=== PATIENT | female | born 1970 | race American Indian/Alaskan Native ===

== ENCOUNTER 2016-11-05 09:04 | Inpatient (IN) | payer OTHER ==
--- NOTE | 2016-11-04 09:39 | Anesthesia Consultation ---
Anesthesia Consult and Med Hx Date of service: 11/05/16 - Airway Anesthetic Teeth Evaluation: Good ROM Head & Neck: Adequate Mental/Hyoid Distance: Adequate Mallampati Class: Class II Intubation Access Assessment: Probably Good - Pre-Operative Health Status ASA Pre-Surgery Classification: ASA2 Proposed Anesthetic Plan: General - Pulmonary Hx Asthma: No COPD: No Hx Pneumonia: No - Cardiovascular System Hx Hypertension: Yes (x 10 yrs) - Central Nervous System Hx Psychiatric Problems: No - Gastrointestinal Hx Gastroesophageal Reflux Disease: Yes - Endocrine Hx End Stage Renal Disease: No - Hematic Hx Anemia: Yes - Other Systems Hx Cancer: No
[2016-11-04 10:47] LABS: Hematocrit 26.3 % (30.3-42.9); Hemoglobin 8.2 gm/dl (10.1-14.3); Mean Corpuscular HGB Conc 31 % (30-34); Mean Corpuscular Volume 75 fl (79-97); Platelet Count 405 K/mm3 (140-440); White Blood Count 7.9 K/mm3 (4.5-11.0)
[2016-11-04 10:52] LABS: Mean Corpuscular Hemoglobin 23 pg (28-32); Red Cell Distribution Width 23.7 % (13.2-15.2)
[2016-11-04 10:57] LABS: Anion Gap 17 mmol/L; BUN/Creatinine Ratio 7.77; Blood Urea Nitrogen 7 mg/dL (7-17); Calcium 9.1 mg/dL (8.4-10.2); Carbon Dioxide 26 mmol/L (22-30); Chloride 98.5 mmol/L (98-107); Glucose 114 mg/dL (65-100); Potassium 3.3 mmol/L (3.6-5.0); Sodium 138 mmol/L (137-145)
[2016-11-04 11:16] LABS: Basophils % (Manual) 0 % (0.0-1.8); Blastocytes % (Manual) 0 %
[2016-11-04 11:17] LABS: Diff Status Complete; Elliptocytes Few; Ovalocytes 1+
--- NOTE | 2016-11-04 17:06 | History and Physical Report ---
History of Present Illness Date of examination: 11/04/16 Date of admission: 11/05/2016 Chief complaint: symptomatic uterine fibroids History of present illness: 46y/o with mutiple uterine fibroids that has caused enlargement of the uterus. The patient is experiencing painful heavy menses. She desires to have definitive surgery. Past History Past Medical History: hypertension, kidney stones, other (anxiety; fibroids) Social history: - Obstetrical History : 4 Para: 3 Hx # Term Pregnancies: 3 Number of Pregnancies: 0 Spontaneous Abortions: 0 Induced : 1 Number of Living Children: 3 Medications and Allergies Allergies Allergy/AdvReac Type Severity Reaction Status Date / Time codeine Allergy Rash Verified 11/04/16 09:43 Home Medications Medication Instructions Recorded Confirmed Last Taken Type amLODIPine [Norvasc] 10 mg PO DAILY 04/16/15 10/31/16 04/16/15 History Hydrochlorothiazide [HCTZ] 25 mg PO QDAY 10/31/16 10/31/16 Unknown History RX: Labetalol [Normodyne TAB] 300 mg PO BID 10/31/16 10/31/16 Unknown History Active Meds: Active Medications Famotidine (Pepcid) 20 mg PO PREOP NR Stop: 11/05/16 23:59 Lactated Ringer's (Lactated Ringers) 1,000 mls @ 100 mls/hr IV DIRECT CHUCK Midazolam HCl (Versed) 2 mg IV PREOP NR Stop: 11/05/16 23:59 Review of Systems All systems: negative Constitutional: fatigue, malaise, lethargy Genitourinary: vaginal bleeding, pelvic pain - Vital Signs Vital signs: Vital Signs Temp Pulse Resp BP 97.9 F 64 14 144/88 11/04/16 12:08 11/04/16 12:08 11/04/16 12:08 11/04/16 12:08 Temp Pulse Resp BP Pulse Ox 97.9 F 64 14 144/88 11/04/16 12:08 11/04/16 12:08 11/04/16 12:08 11/04/16 12:08 - Physical Exam Breasts: Positive: deferred Cardiovascular: Regular rate Lungs: Positive: Clear to auscultation Abdomen: Positive: other (pelvic mass) Uterus: Positive: enlarged Results Result Diagrams: 11/04/16 09:25 03/14/17 09:25 Abnormal lab results 11/04/16 11/04/16 Range/Units 09:25 09:25 RBC 3.50 L (3.65-5.03) M/mm3 Hgb 8.2 L (10.1-14.3) gm/dl Hct 26.3 L (30.3-42.9) % MCV 75 L (79-97) fl MCH 23 L (28-32) pg RDW 23.7 H (13.2-15.2) % Seg Neuts % (Manual) 88.0 H (40.0-70.0) % Lymphocytes % (Manual) 7.0 L (13.4-35.0) % Lymphocytes # (Manual) 0.6 L (1.2-5.4) K/mm3 Potassium 3.3 L (3.6-5.0) mmol/L Glucose 114 H (65-100) mg/dL All other labs normal. Assessment and Plan - Patient Problems (1) Leiomyoma Status: Acute Plan to address problem: scheduled for LEYDI/BSO (2) Menorrhagia Status: Acute Qualifiers: Menorrahagia type: M (3) Dysmenorrhea Status: Acute (4) Anemia Status: Acute Qualifiers: Anemia type: A Iron deficiency anemia type: I Vitamin B12 deficiency anemia type: V Folate deficiency anemia type: F Bone marrow failure anemia type: B Hemolytic anemia type: H Other causes of anemia: O
[~2016-11-05 09:04] MED LIST: ACD-A IV ONE; ANCEF/STERILE WATER 2 GM/20 ML 2 GM/20 ML SYRINGE IV SCH; LACTATED RINGERS 1,000 ML IV SCH; NACL 0.9% 500 ML 500 ML IV SCH; PEPCID PO NR; VERSED IV NR
[2016-11-05] MEDS ORDERED: NACL 0.9% 1000 ML 1,000 ML IV SCH (10:00)
[2016-11-05] MEDS ORDERED: NEURONTIN PO NR (10:42)
[2016-11-05] MEDS ORDERED: SUBLIMAZE IV NR (10:43)
[2016-11-05] MEDS ORDERED: MARCAINE-EPI 0.5%-1:200,000 INFILTRATI NR (10:44)
[2016-11-05] MEDS ORDERED: DECADRON IV NR (10:44)
--- NOTE | 2016-11-05 11:52 | Admit Criteria Form ---
Admission Criteria Documentation: AMBULATORY SURGERY EXCEPTION CRITERIA Ambulatory Surgery Exception Criteria ( Place 'X' for any and all applicable criteria): Surgery or procedure performed on ambulatory basis may require inpatient stay for[A] ANY ONE of the following(1)(2)(3)(4)(5)(6)(7)(8)(9): [X] I. A preoperative situation, condition, or finding that warrants inpatient stay as indicated by ANY ONE of the following: [X] a) Inpatient care needed because of severity of a disease or condition rather than the surgery (eg, severe cardiac or respiratory disease, severe infection) (15) (16 ) (17) (18) [] b) Emergent procedure (eg, angioplasty for acute ischemia)(19) [] c) Complex surgical approach or situation as indicated by ANY ONE of the following(3): [] i) Open approach needed instead of usual endoscopic, transcatheter, or other less invasive procedure [] ii) Difficult approach because of previous operation [] iii) Airway monitoring required after open neck procedures(20)(21) [] iv) Large mass requiring unusually extensive dissection [] v) Additional complicating feature requiring inpatient care (eg, drain management)(22(23): [] d) Major surgery in a pt with high anesthetic risk as indicated by ANY ONE of the following (2)(3)(5)(7)(8): [] i) ASA risk class III or higher (severe systemic disease impairing function) [D] [] ii) Advanced age (eg, older than 85 years)(14)(24) [] iii) Symptomatic heart failure(25) [] iv) Symptomatic asthma or COPD(8)(21) [] v) Morbid obesity with hemodynamic or respiratory problems(20)( 21)(26)(27) [] vi) Obstructive sleep apnea(20)(21) [] vii) Former premature infants who are younger than 60 weeks [] viii) High risk for severe postoperative abnormalities (eg, severe postoperative hypocalcemia after parathyroidectomy for severe hyperparathyroidism)(27)( 28) [] ix) Unstable angina(25) [] e) Drug-related risk requiring inpatient stay as indicated by ANY ONE of the following(5)(10)(14)(32)(33) [] i) Procedure requires discontinuing drugs or other therapy (eg , antiarrhythmic medication, antiseizure medication), which necessitates inpatient observation or treatment.(18)(31) [] ii) Major surgery and high risk drug use as indicated by ANY ONE of the following: [] 1) Active abuse of cocaine or similar drug [] 2) Monoamine oxidase inhibitor use [] 3) Other drug identified as posing risk [] f) Inadequate outpatient care situation as indicated by ANY ONE of the following(5)(10)(14)(32)(33) [] i) Patient lives remote from medical facility and procedure has urgent complication potential, and temporary nearby residence cannot be arranged [] ii) Patient will have postprocedure incapacitation and inadequate assistance at home, or alternative level of care cannot be arranged. [] iii) Patient will have long general anesthesia or procedure side effect resolution time, and competent person to stay with patient on first postoperative night at home or alternative level of care cannot be arranged. []iv) Other inadequate outpatient situation that cannot be handled by other means [] II. A perioperative event, condition, or finding that warrants inpatient stay as indicated by ANY ONE of the following (1)(2)(3): [] a) Inadequate physiologic recovery: cardiovascular, respiratory, or hemodynamic status not normal or near preoperative baseline(18) [] b) Hemodynamic instability [] c) Patient not alert with near normal or baseline mental status [] d) Temperature not normal or as expected and not appropriate for outpatient treatment of condition [] e) Ambulatory or appropriate activity level status not yet achieved post procedure [E](34)(35)(36) [] f) Operative site not appropriate (eg, unexpected or excessive drainage or bleeding) [] g) Postoperative effects not resolved or adequately managed (eg, significant pain or vomiting not appropriate for outpatient or next level of care)(10)(12) [] h) Complicating features requiring inpatient care as indicated by ANY ONE of the following(37): [] i) Severe complications of procedure (eg, bowel injury, airway compromise, vascular injury,severe hemorrhage) [] ii) Extensive (eg, dissection far beyond usual scope of procedure ) or prolonged (eg, 120 minutes beyond usual) surgery needed requiring inpatient postoperative care [] iii) Conversion to an open or complex procedure that requires inpatient care (eg, open vs laparoscopic cholecystectomy, abdominal vs vaginal hysterectomy)(38) [] iv) Comorbid condition or test result identified during or post procedure that requires inpatient care (7) [] v) Malignant hyperthermia(30) [] vi) Other complicating feature requiring inpatient care(22)(23) Inpatient stay may be needed until ALL of the following are present (1)(2)(3)(4) (5)(6)(10)(14)(33)(40): []a) Physiologic recovery: cardiovascular, respiratory, and hemodynamic status normal or near preoperative baseline []b) Hemodynamic stability []c) Patient alert, with near normal or baseline mental status []d) Temperature appropriate: patient afebrile or temperature appropriate for outpt treatment of condition []e) Activity level appropriate: ambulatory or appropriate activity level post procedure []f) Operative site appropriate as indicated by ALL of the following: []i) Site dry or with expected drainage []ii) Any blood noted is as expected for procedure. []g) Postoperative effects resolved or managed as indicated by ALL of the following: []i) Pain management appropriate for outpatient (or next level of) care(10) []ii) Minimal nausea and vomiting: if present, successfully treated with oral medication(12) []iii) Headache, dizziness, or drowsiness (if present) are mild. []h) Voiding status acceptable as indicated by ANY ONE of the following: []i) Voiding spontaneously []ii) No voiding but instructions given for follow-up in 6 to 8 hours []iii) Urinary catheter in place, and instructions given for follow-up []i) Complicating features requiring inpatient care manageable at a lower level of care(37) []j) Comorbid conditions manageable at a lower level of care(37) The original [employer] content created by [employer] has been revised. The portions of the content which have been revised are identified through the use of italic text or in bold, and [employer] has neither reviewed nor approved the modified material. All other unmodified content is copyright [employer]. Please see references footnoted in the original [employer] edition 2016 Admission Criteria Met: Yes
--- NOTE | 2016-11-05 12:00 | Anesthesia Consultation ---
Anesthesia Consult and Med Hx - Airway Anesthetic Teeth Evaluation: Good ROM Head & Neck: Adequate Mental/Hyoid Distance: Adequate Mallampati Class: Class II Intubation Access Assessment: Probably Good - Pulmonary Exam CTA: Yes - Cardiac Exam Cardiac Exam: RRR - Pre-Operative Health Status ASA Pre-Surgery Classification: ASA3 Proposed Anesthetic Plan: General - Pulmonary Hx Smoking: No Hx Asthma: No COPD: No Hx Pneumonia: No - Cardiovascular System Hx Hypertension: Yes (x 10 yrs) - Central Nervous System Hx Psychiatric Problems: No - Gastrointestinal Hx Gastroesophageal Reflux Disease: Yes - Endocrine Hx End Stage Renal Disease: No - Hematic Hx Anemia: Yes (hct 26 receiving first PRBC in preop) - Other Systems Hx Cancer: No
--- NOTE | 2016-11-05 12:01 | Anesthesia Day of Surgery ---
Anesthesia Day of Surgery - Day of Surgery Patient Examined: Yes Patient H&P Reviewed: Yes Patient is NPO: Yes Beta Blockers: Yes Cardiac Clearance: No Pulmonary Clearance: No
[2016-11-05] MEDS ORDERED: SUBLIMAZE ONE (12:39)
[2016-11-05] MEDS ORDERED: DIPRIVAN 10 MG/ML IV ONE (12:40)
[2016-11-05] MEDS ORDERED: ZEMURON IV ONE (12:41)
[2016-11-05] MEDS ORDERED: XYLOCAINE MPF 2% ONE (12:43)
[2016-11-05] MEDS ORDERED: CLONIDINE 1,000 MCG/10 ML VIAL EP ONE (12:49)
[2016-11-05] MEDS ORDERED: NACL 0.9% IR ONE (13:01)
[2016-11-05] MEDS ORDERED: NACL 0.9% 1000 ML ONE (13:10)
[2016-11-05] MEDS ORDERED: ROBINUL ONE ×2 (13:10→14:33)
--- NOTE | 2016-11-05 13:13 | Post Anesthesia Evaluation ---
- Post Anesthesia Evaluation Airway Patent: Yes Stable Respiratory Function: Yes Temp > 96.8F: Yes Pain Manageable: Yes Adequeate Hydration: Yes
[2016-11-05] MEDS ORDERED: ZOFRAN ONE (13:58)
[2016-11-05] MEDS ORDERED: DECADRON ONE (13:58)
[2016-11-05] MEDS ORDERED: DILAUDID ONE (14:25)
[2016-11-05] MEDS ORDERED: NACL 0.9% 1000 ML 1,000 ML ONE (14:32)
[2016-11-05] MEDS ORDERED: NEOSTIGMINE ONE (14:34)
[2016-11-05] MEDS ORDERED: TORADOL ONE (14:35)
--- NOTE | 2016-11-05 14:55 | Operative Report ---
Operative Report Operative Report: Date of procedure: 11/05/2016 Pre-operative diagnosis: Symptomatic uterine fibroids; dysfunctional uterine bleeding; dysmenorrhea Post-operative diagnosis: Same as above Procedure name(s):. Total Abdominal hysterectomy and bilateral salpingo- oophorectomy Surgeon: Valery Weber M.D. Vegetable Packer: Leah Mcmahon MD Anesthesia: Gen. endotracheal anesthesia Findings Enlarged fibroid uterus with multiple leiomyomas Estimated blood loss: 200ml Pathology: Uterus, cervix, tubes, ovaries, and the leiomyomas Indication: 46-year-old 013 with symptomatic uterine ports. The patient elected to undergo definitive surgical management. Procedure The patient was taken to the operating room and given general endotracheal anesthesia without complication. The patient was prepped and draped in a normal sterile fashion. A penicillin skin incision was made down to layer of the fascia which was nicked in the midline and extended laterally with the Bovie cautery. Superior aspect of the rectus fascia was grasped with Tamy clamps 2 and the rectus muscles sharply. This was done in inferior fashion as well. The rectus muscle in the midline and the peritoneum entered bluntly. Survey of the patient's pelvis revealed evidence of an enlarged uterus with multiple fibroids. Uterus was elevated through the surgical incision out of the pelvis. The round ligament was ligated and transected with the LigaSure device. The infundibulopelvic ligaments were isolated and clamped 2 with Michael clamps transected and suture ligated with 0 Vicryl. A fundal myoma had to be excised in order to improve mobilization of the uterus. Once access to the uterine vessels was obtained, the uterine vessels were clamped 2 with a Michael clamp transected and suture ligated. In a sequential fashion along the broad ligament the ligament was clamped transected and suture ligated. Once the blood supply to the uterus was adequately contained the corpus of the uterus was amputated from the cervix. Retaining retractor was placed with warm moist laparotomy sponges. The cervical stump was grasped with a single-tooth tenaculum and elevated. The vesicouterine peritoneal was then dissected off of the lower uterine segment. This performed by sharp and blunt dissection. A straight Michael clamp was used in order to isolate the cervix on the surrounding tissue. The cervix was secured a Zeppelin clamp was placed below the level of the cervix and the cervix was amputated from the vaginal cuff. The vaginal cuff was then closed with Mar fixation stitch and [id number] stitches in the midline. Irrigation of the pelvis was performed. Tisseel was applied to the surgical sites. There is no evidence of any active bleeding at the conclusion of the case. The self-retaining retractor was removed along with the laparotomy sponges. The peritoneum was then closed in a running fashion with 0 Vicryl. The fascia was then closed in a running fashion with 0 Vicryl. The subcutaneous adipose tissue was reapproximated midline with 0 Vicryl. The skin was reapproximated with 3-0 Monocryl on a Seth in a subcuticular fashion. Steri-Strips placed across the incision. A pressure dressing was applied to the incision. All sponge laps and needle counts were correct 2. The patient was then successfully extubated and taken to the recovery room in stable condition.
[2016-11-05] MEDS ORDERED: NARCAN 0.4 MG/1 ML IV PRN (14:57)
[2016-11-05] MEDS ORDERED: ZOFRAN IV PRN (14:59)
[2016-11-05] MEDS ORDERED: TYLENOL PO PRN (14:59)
[2016-11-05] MEDS ORDERED: MORPHINE PCA 30MG/30ML IV SCH (15:00)
--- NOTE | 2016-11-05 15:37 | Post Anesthesia Evaluation ---
- Post Anesthesia Evaluation Patient Participated: Yes Airway Patent: Yes Stable Respiratory Function: Yes Nausea/Vomiting: No Temp > 96.8F: Yes Pain Manageable: Yes Adequeate Hydration: Yes Anesthesia Complications: No Block Receding Appropriately: Not Applicable Patient on Ventilator: No
[2016-11-05] MEDS: TORADOL IV SCH ×2 (18:06→23:49)
[2016-11-05] MEDS: PERCOCET 5/325 PO PRN (20:13)
[2016-11-05] MEDS: D5LR 1,000 ML IV SCH (23:55)
[2016-11-06 06:27] LABS: Hematocrit 30.1 % (30.3-42.9); Hemoglobin 9.5 gm/dl (10.1-14.3)
[2016-11-06] MEDS: TORADOL IV SCH (06:52)
[2016-11-06] MEDS: D5LR 1,000 ML IV SCH (06:53)
--- NOTE | 2016-11-06 08:45 | Progress Note ---
Assessment and Plan - Patient Problems (1) Leiomyoma Current Visit: Yes Status: Acute Plan to address problem: Patient doing well postoperatively Routine postoperative care (2) Menorrhagia Current Visit: Yes Status: Acute Qualifiers: Menorrahagia type: M (3) Dysmenorrhea Current Visit: Yes Status: Acute (4) Anemia Current Visit: Yes Status: Acute Qualifiers: Anemia type: A Iron deficiency anemia type: I Vitamin B12 deficiency anemia type: V Folate deficiency anemia type: F Bone marrow failure anemia type: B Hemolytic anemia type: H Other causes of anemia: O Subjective - Subjective Date of service: 11/06/16 Interval history: The patient is without any significant complaints. She is tolerating clear diet without complication. She is currently sitting up in the bed and has ambulated in the room. Patient reports: appetite normal, pain well controlled Objective - Vital Signs Latest vital signs: Vital Signs Temp Pulse Pulse Resp BP BP Pulse Ox 11/06/16 05:13 20 11/06/16 04:00 98.6 F 82 16 122/80 11/06/16 00:00 98.6 F 77 22 122/68 11/05/16 23:56 20 11/05/16 19:30 98.6 F 70 16 136/82 11/05/16 16:30 98.8 F 63 16 110/71 96 11/05/16 16:19 97.5 F L 65 18 120/76 11/05/16 16:15 63 17 109/71 99 11/05/16 16:00 61 19 114/71 99 11/05/16 15:45 60 18 108/69 99 11/05/16 15:30 63 19 114/69 98 11/05/16 15:20 59 L 17 108/65 100 11/05/16 15:12 59 L 16 104/57 100 11/05/16 15:07 61 16 103/63 100 11/05/16 15:02 97.8 F 58 L 15 101/67 100 11/05/16 13:05 69 12 124/80 100 11/05/16 13:00 68 16 126/82 100 11/05/16 12:55 69 16 119/73 100 11/05/16 12:50 67 15 114/70 100 11/05/16 12:45 67 11 L 131/79 100 11/05/16 12:10 99.2 F 62 18 135/78 100 11/05/16 12:00 99.5 F 66 18 135/78 100 11/05/16 11:45 98.4 F 67 18 112/69 100 11/05/16 10:47 98.1 F 67 18 127/72 100 11/05/16 09:39 98.1 F 67 18 127/72 100 Intake and Output 11/05/16 11/06/16 11/06/16 22:59 06:59 14:59 Intake Total 1300 Output Total 780 1800 Balance -780 -500 Intake: IV 1000 D5lr 1,000 ml @ 125 mls/ 1000 hr IV DIRECT CHUCK Rx#: [id number] Oral 300 Output: Urine 780 1800 Indwelling Catheter 600 1800 Uretheral (Bernal) 180 Other: Total, Intake Amount 300 Total, Output Amount 600 1200 Voiding Method Indwelling Catheter - Exam Abdomen: Present: normal appearance, soft Incision: Present: dressed - Labs Labs: Abnormal lab results 11/05/16 11/06/16 Range/Units 10:00 05:30 Hgb 9.5 L (10.1-14.3) gm/dl Hct 30.1 L (30.3-42.9) % Crossmatch See Detail
--- NOTE | 2016-11-06 10:13 | Progress Note ---
Subjective Date of service: 11/06/16 Interval history: 1st POD after hysterectomy Patient is in the bed, comfortable. Pain is well controlled with pain meds. Ambulated. No nausea or vomiting. No anesthesia complications Objective - Constitutional Vitals: Vital Signs - 12hr 11/05/16 11/06/16 11/06/16 23:56 00:00 04:00 Temperature 98.6 F 98.6 F Pulse Rate [ Left Radial] Pulse Rate [ 77 82 Right From Monitor] Respiratory 20 22 16 Rate Blood Pressure [Left Arm] Blood Pressure 122/68 122/80 [Right Arm] 11/06/16 11/06/16 11/06/16 05:13 07:36 08:30 Temperature 98.3 F Pulse Rate [ 76 Left Radial] Pulse Rate [ Right From Monitor] Respiratory 20 18 18 Rate Blood Pressure 132/70 [Left Arm] Blood Pressure [Right Arm] - Labs CBC & Chem 7: 11/06/16 05:30 11/04/16 09:25 Labs: Abnormal lab results 11/05/16 11/06/16 Range/Units 10:00 05:30 Hgb 9.5 L (10.1-14.3) gm/dl Hct 30.1 L (30.3-42.9) % Crossmatch See Detail
[2016-11-06] MEDS: PERCOCET 5/325 PO PRN ×3 (10:37→22:00)
[2016-11-06] MEDS: MILK OF MAGNESIA PO PRN (15:43)
[2016-11-07] MEDS: PERCOCET 5/325 PO PRN ×2 (06:10→10:15)
[2016-11-07] MEDS: MILK OF MAGNESIA PO PRN (06:10)
[2016-11-07] MEDS ORDERED: DULCOLAX PR PRN (09:45)
--- NOTE | 2016-11-07 14:09 | Progress Note ---
Assessment and Plan A/P POD#2 s/p abdominal hysterectomy -doing well -tolerating diet -pain well controlled -had a bowel movement -patient met d/c criteria will f/u in 2 weeks for incision check Subjective - Subjective Date of service: 11/07/16 Principal diagnosis: s/p abdominal hysterectomy Patient reports: appetite normal, voiding normally, pain well controlled, flatus , bowel movement, ambulating normally Objective - Vital Signs Latest vital signs: Vital Signs Temp Pulse Pulse Resp BP 11/07/16 11:42 97.3 F L 67 18 174/99 11/07/16 08:53 98.5 F 69 15 151/86 11/07/16 06:10 18 11/07/16 01:00 98.6 F 67 20 143/87 11/06/16 23:00 18 11/06/16 22:00 18 11/06/16 20:15 98.4 F 72 22 137/76 11/06/16 19:45 18 11/06/16 16:20 97.7 F 80 20 138/82 Intake and Output 11/06/16 11/07/16 11/07/16 22:59 06:59 14:59 Intake Total 480 360 Output Total 200 Balance 480 160 Intake: Oral 240 360 Intake, Free Water 240 Output: Urine 200 Void 200 Other: Total, Intake Amount 240 360 Total, Output Amount 200 Voiding Method Toilet Toilet # Voids 360 Void 1 1 - Exam Breasts: Present: deferred Cardiovascular: Present: Regular rate, Normal S1, Normal S2 Lungs: Present: Clear to auscultation, Normal air movement Abdomen: Present: normal appearance, soft, normal bowel sounds. Absent: distention Vulva: both: normal Extremities: Present: normal Deep Tendon Reflex Grade: Normal +2 Incision: Present: normal, dry, intact
--- NOTE | 2016-11-07 14:12 | Discharge Summary ---
Providers - Providers Date of Admission: 11/05/16 09:24 Date of discharge: 11/07/16 Attending physician: INES ORTIZ Primary care physician: MICHELLE PHILLIPS Hospitalization Reason for admission: other (s/p abdominal hysterectomy ) Procedure: other (abdominal hysterectomy) Incision: normal, dry, intact Condition at discharge: Good Disposition: DISCHARGED TO HOME OR SELFCARE Plan - Discharge Medications Prescriptions: Docusate Sodium [Colace] 100 mg PO BID PRN #60 capsule PRN Reason: Constipation Ibuprofen [Motrin] 800 mg PO Q8HR PRN #60 tablet PRN Reason: Pain Oxycodone HCl/Acetaminophen [Percocet 7.5/325 mg] 1 each PO Q6HR PRN #45 tablet PRN Reason: Pain - Provider Discharge Summary Activity: no sex for 6 weeks, no heavy lifting 4 weeks, no strenuous exercise Diet: routine Instructions: routine Additional instructions: [] Smoking cessation referral if applicable(refer to patient education folder for contact #) [] Refer to [facility]'s [facility] Booklet Call your doctor immediately for: * Fever > 100.5 * Heavy vaginal bleeding ( >1 pad per hour) * Severe persistent headache * Shortness of breath * Reddened, hot, painful area to leg or breast * Drainage or odor from incision. * Keep incision clean and dry at all times and follow doctor's instructions regarding bathing/showering - Follow up plan Follow up: MICHELLE PHILLIPS MD [Primary Care Provider] - 7 Days INES ORTIZ MD [Staff Physician] - 14 Days
[2016-11-07] MEDS ORDERED: NORMODYNE PO SCH (15:00)
[2016-11-07] MEDS ORDERED: NORVASC PO SCH (15:00)
[2016-11-07 18:02] VITALS: BP 172/92
== END 2016-11-07 18:08 | disposition home or self-care (01) | DRG 743 ==
LOC: 3A 09:24 → OB 15:31
PROVIDERS: ADMIT Obstetrics & Gynecology; ATTEND Obstetrics & Gynecology
PROC: 30233N1 Transfusion of Nonautologous Red Blood Cells into Peripheral Vein, Percutaneous Approach (ICD-10-PCS; 2016-11-04)
PROC: 0UT90ZZ Resection of Uterus, Open Approach (ICD-10-PCS; principal; 2016-11-05)
PROC: 0UTC0ZZ Resection of Cervix, Open Approach (ICD-10-PCS; 2016-11-05)
PROC: 0UT20ZZ Resection of Bilateral Ovaries, Open Approach (ICD-10-PCS; 2016-11-05)
PROC: 0UT70ZZ Resection of Bilateral Fallopian Tubes, Open Approach (ICD-10-PCS; 2016-11-05)
DX: D25.9 Leiomyoma of uterus, unspecified (principal); I10 Essential (primary) hypertension; F41.9 Anxiety disorder, unspecified; N92.0 Excessive and frequent menstruation with regular cycle; N94.6 Dysmenorrhea, unspecified; D64.9 Anemia, unspecified; K21.9 Gastro-esophageal reflux disease without esophagitis; Z87.442 Personal history of urinary calculi; Z88.6 Allergy status to analgesic agent
CPT/HCPCS: 36415; 64450; 80048; 84703; 85007; 85014; 85018; 85025; 86850; 86900; 86901; 86920; 88307; C9250; J0690; J0735; J1100; J1170; J1885; J2250; J2270; J2405; J2704; J2710; J3010; J7030; J7121; P9016